=== PATIENT | female | born 1960 | race Asian ===

== ENCOUNTER 2017-06-15 10:01 | Inpatient (IN) | payer OTHER ==
[~2017-06-15] VITALS: Ht 154.9 cm; Wt 75.9 kg
[2017-06-15 12:06] LABS: BASOPHIL % 0.5 % (0-2); PLATELET COUNT 327 x10^3mcL (130-400); RED CELL DISTRIBUTION WIDTH 12.1 % (11.5-14.5)
[2017-06-15 12:15] LABS: ALBUMIN 4.1 g/dL (3.4-5.0); ALKALINE PHOSPHATASE 66 U/L (46-116); ALT/SGPT 117 U/L (14-59); AST/SGOT 59 U/L (15-37); BILIRUBIN TOTAL 0.36 mg/dL (0.20-1.00); CALCIUM 9.2 mg/dL (8.5-10.1); CARBON DIOXIDE 25.8 mmol/L (21-32); CHLORIDE SERUM 89 mmol/L (98-107); CREATININE SERUM 0.7 mg/dL (0.6-1.0); GFR1 > 60 mL/min; GLUCOSE SERUM 227 mg/dL (74-106)
[2017-06-15 12:18] LABS: SODIUM SERUM 123 mmol/L (136-145); TOTAL PROTEIN, SERUM 8.3 g/dL (6.4-8.2)
[2017-06-15] MEDS ORDERED: LEVOFLOXACIN500 M1 PO (14:04)
[2017-06-15] MEDS ORDERED: LOSARTAN POTASS1 TA6 PO (14:05)
[2017-06-15 14:28] LABS: microscopic required? NO
[2017-06-15 14:43] LABS: UA SPECIFIC GRAVITY <=1.005 (1.005-1.035); urine erythrocyte NEGATIVE (NEGATIVE)
[2017-06-15 16:22] VITALS: BP 146/80
[2017-06-15 18:06] LABS: FREE T4 1.32 ng/dL (0.76-1.46); FREE THYROXINE INDEX 4.6 ug/dL (1.4-4.5); T4(THYROXINE) 12.9 ug/dL (4.7-13.3)
[2017-06-15 18:09] LABS: T3 TOTAL 1.04 ng/mL
[2017-06-15] MEDS ORDERED: CLONIDINE HCL0.2 MG PO (18:11)
[2017-06-15 18:29] LABS: CHOLESTEROL/HDL RATIO 4.5; PHOSPHOROUS 3.4 mg/dL (2.5-4.9)
[2017-06-15 19:41] LABS: CALCIUM 8.7 mg/dL (8.5-10.1); CARBON DIOXIDE 25.5 mmol/L (21-32); CHLORIDE SERUM 94 mmol/L (98-107); CREATININE SERUM 0.7 mg/dL (0.6-1.0); GFR1 > 60 mL/min; GLUCOSE SERUM 302 mg/dL (74-106); POTASSIUM SERUM 4.2 mmol/L (3.5-5.1); SODIUM SERUM 130 mmol/L (136-145)
[2017-06-15 21:35] VITALS: BP 128/72
[2017-06-16 05:35] VITALS: BP 121/72
[2017-06-16 05:47] LABS: AMPHETAMINE QUAL UR NONE DETECTED (NEG <=1000)
[2017-06-16 06:13] LABS: BASOPHIL % 0.4 % (0-2); PLATELET COUNT 308 x10^3mcL (130-400); RED CELL DISTRIBUTION WIDTH 12.4 % (11.5-14.5)
[2017-06-16 06:34] LABS: CALCIUM 8.9 mg/dL (8.5-10.1); CARBON DIOXIDE 26.8 mmol/L (21-32); CHLORIDE SERUM 103 mmol/L (98-107); CREATININE SERUM 0.6 mg/dL (0.6-1.0); GFR1 > 60 mL/min; GLUCOSE SERUM 145 mg/dL (74-106); MAGNESIUM 2.3 mg/dL (1.8-2.4); POTASSIUM SERUM 4.6 mmol/L (3.5-5.1); SODIUM SERUM 137 mmol/L (136-145)
[2017-06-16 08:05] VITALS: BP 147/85
[2017-06-16] MEDS ORDERED: METFORMIN HCL1000 MG PO (10:23)
[2017-06-16 11:50] VITALS: BP 156/85
[2017-06-16 12:59] VITALS: BP 147/85
== END 2017-06-16 15:05 | disposition home or self-care (01) | DRG 304 ==
LOC: ED 10:01 → EDBEDREQ 13:41 → DU 13:41
PROVIDERS: Emergency Medicine; ADMIT Family Medicine
DX: I16.0 Hypertensive urgency (principal); N17.0 Acute kidney failure with tubular necrosis; E87.1 Hypo-osmolality and hyponatremia; E86.0 Dehydration; E11.65 Type 2 diabetes mellitus with hyperglycemia; E78.5 Hyperlipidemia, unspecified; E02 Subclinical iodine-deficiency hypothyroidism; I10 Essential (primary) hypertension; Z68.28 Body mass index [BMI] 28.0-28.9, adult; Z88.6 Allergy status to analgesic agent
CPT/HCPCS: 82962; 83880; 84439; 87804; 90658; J0360; J7030; Q0092

== ENCOUNTER 2017-11-20 14:46 | Emergency (ER) | payer OTHER ==
[~2017-11-20] VITALS: Ht 162.6 cm; Wt 71.7 kg
[~2017-11-20 14:46] MED LIST: CLONIDINE HCL0.2 MG PO; LEVOFLOXACIN500 M1 PO; LOSARTAN POTASS1 TA6 PO; METFORMIN HCL1000 MG PO
[2017-11-20 14:51] VITALS: Ht 162.6 cm; Wt 71.7 kg
[2017-11-20 15:43] LABS: BASOPHIL % 0.2 % (0-2); PLATELET COUNT 303 x10^3mcL (130-400); RED CELL DISTRIBUTION WIDTH 12.2 % (11.5-14.5)
[2017-11-20 15:48] LABS: CALCIUM 8.8 mg/dL (8.5-10.1); CARBON DIOXIDE 24.4 mmol/L (21-32); CHLORIDE SERUM 100 mmol/L (98-107); CREATININE SERUM 0.7 mg/dL (0.6-1.0); GFR1 > 60 mL/min; GLUCOSE SERUM 241 mg/dL (74-106); POTASSIUM SERUM 3.9 mmol/L (3.5-5.1); SODIUM SERUM 131 mmol/L (136-145)
[2017-11-20 15:54] LABS: ALBUMIN 3.8 g/dL (3.4-5.0); ALKALINE PHOSPHATASE 66 U/L (46-116); ALT/SGPT 32 U/L (14-59); AST/SGOT 14 U/L (15-37); BILIRUBIN TOTAL 0.2 mg/dL (0.20-1.00); CHOLESTEROL 157 mg/dL (<200); PHOSPHOROUS 3.3 mg/dL (2.5-4.9); TOTAL PROTEIN, SERUM 7.5 g/dL (6.4-8.2); URIC ACID 4.5 mg/dL (2.6-6.0)
[2017-11-20 15:58] LABS: HDL CHOLESTEROL 28 mg/dL (40-60)
[2017-11-20 17:57] VITALS: BP 1338/78
== END 2017-11-20 17:57 | disposition home or self-care (01) ==
LOC: ED 14:46
PROVIDERS: Emergency Medicine
DX: R42 Dizziness and giddiness (principal); I10 Essential (primary) hypertension; Z88.6 Allergy status to analgesic agent
CPT/HCPCS: 36415; 83880; Q0092